=== PATIENT | female | born 1950 | race Caucasian/White ===

== ENCOUNTER 2020-05-03 12:00 | Emergency (ER) | payer OTHER, BC ==
[~2020-05-03] VITALS: Ht 152.4 cm; Wt 77.1 kg
[2020-05-03 12:11] VITALS: BP_SYST 135
--- NOTE | 2020-05-03 12:30 | NUR ---
CALM, ALERT, STEADY GAIT, RESP UNLABORED, SKIN WARM AND DRY. NO DISTRESS
--- NOTE | 2020-05-03 12:42 | NUR ---
Patient to ER bed 05 to gown for evaluation. Side rails up.
--- NOTE | 2020-05-03 12:45 | NUR ---
ER at bedside examining patient.
[2020-05-03] MEDS ORDERED: HYDROcodone/ACETAMIN 5-325 MG TAB (NORCO/ VICODIN) PO ONE (13:00)
[2020-05-03 14:40] VITALS: BP_SYST 127
--- NOTE | 2020-05-03 14:43 | NUR ---
Patient given written and verbal discharge instructions and verbalizes understanding. ER MD discussed with patient the results and treatment provided. Patient in stable condition. ID arm band removed. Rx given. Patient educated on pain management and to follow up with PMD. Pain Scale 2/10 Opportunity for questions provided and answered. Medication side effect fact sheet provided.
== END 2020-05-03 14:43 | disposition home or self-care (01) ==
LOC: SED 12:00
DX: M54.5 Low back pain (principal); Z88.0 Allergy status to penicillin; Z88.1 Allergy status to other antibiotic agents
CPT/HCPCS: 72072-TC; 72100-TC; 99284

== ENCOUNTER 2020-08-28 10:04 | Outpatient (CLI) | payer OTHER, BC | END 2020-08-28 21:04 | disposition home or self-care (01) | LOC: SMA 10:04 | PROVIDERS: ATTEND Family Medicine | DX: Z12.31 Encounter for screening mammogram for malignant neoplasm of breast (principal) | CPT/HCPCS: 77067 ==